=== PATIENT | female | born 1940 | race Caucasian/White ===

== ENCOUNTER 2017-05-31 09:25 | Emergency (ER) | payer MEDICARE, OTHER ==
[~2017-05-31] VITALS: Ht 157.5 cm; Wt 68.2 kg
[2017-05-31 09:26] VITALS: BP 114/65; PULSE 76; RESP 16; O2SAT 95
--- NOTE | 2017-05-31 09:34 | ED.REPORT ---
HPI-Trauma Minor / Fall Date of Service May 31, 2017 ED Provider: Dr. Marrero Pt is a 76 year old female with a hx of glaucoma presenting to the ED after tripping on the sidewalk and falling face first onto the sidewalk. She presents with abrasions to her upper lip, chin, knees and nose, and pain in her right wrist. She tried to catch herself with her hands, but fell onto her face. She denies any LOC, neck pain, back pain, vision changes, jaw pain or misalignment, abd pain, chest pain, trouble walking, or any other symptoms at this time. Nursing Notes Stated Complaint: GLF Chief Complaint: Multiple Trauma/Fall Nursing Notes Reviewed: Yes Allergies: Coded Allergies: amoxicillin (Verified Allergy, Severe, Anaphylaxis, 05/31/17) codeine (Verified Adverse Reaction, Severe, Nausea,Vomiting, 05/31/17) General Time Seen by MD: 09:33 Chief Complaint Fall on outstretched hand Hx Obtained From: Patient Arrived By: Walk-in Onset Occurred: Just prior to arrival Symptom Duration: Since onset Caused by: Fall on ground Location: Head Wrist right Quality: Painful Severity: Current: Moderate Severity: Maximum: Moderate Context: Immunizations All up to date Recent Healthcare: No recent doctor visit, No recent hospitalization Similar Sx Previous: No Past Medical History Past Medical History Glaucoma Denies: Diabetes mellitus Past Surgical History denies Smoking History Unknown if Ever Smoker Ambulatory Status Independent Review of Systems Review of Systems Note: + Abrasions to lip, nose, chin and knees Eyes: Denies: Visual loss bilateral Respiratory: Denies: Shortness of breath Musculoskeletal: Reports: Extremity pain, Joint pain (Right wrist), Denies: Back pain, Neck pain Neurologic: Denies: Change LOC, Weakness Complete sys rev & neg: except as marked. Cardiovascular: Denies: Chest pain GI: Denies: Abdominal pain Physical Exam Initial Vital Signs Vital Signs (First) Date Time Temp Pulse Resp B/P Pulse Ox O2 Delivery O2 Flow Rate FiO2 05/31/17 09:26 36.1 76 16 114/65 95 Room Air Initial VS: Reviewed Head / Eyes: Atraumatic, Normocephalic, PERRL Respiratory: Breath sounds normal, Clear to auscultation, No respiratory distress Cardiovascular: Regular rate & rhythm, Heart sounds normal, Intact distal pulses Abdomen / GI: Soft, Non-tender, No guarding, No rebound, No distention Extremities: Vascular intact, Neuro intact, No swelling, No tenderness Neurologic: Alert, Oriented, Nonfocal Psychiatric: Mood/affect normal, Behavior normal, Normal thought content General/Constitutional: Awake, Alert, No acute distress ENT: Airway patent, Mucous membranes moist, Pharynx NL No septal hematoma Wrist / Hand: Full range of motion, No swelling, No erythema, No snuffbox tenderness, No deformity, Neurologic intact, Vascular intact, No ligamentous injury No pain with axial loading of thumb Skin: Warm, Dry Abrasions left chin, bridge of nose, left knee, left upper lip. Through and through laceration to upper lip, not involved in the vermilion border. Procedures Laceration Management Laceration Management: After carefully inspecting this wound under magnification and good lighting after having instilled 1-2 mL of lidocaine with epinephrine I could see that there were multiple flaps and it was not clear to me how to optimally aligned them so as to gongora the best cosmetic result. I then contacted Dr. Renato Camarena again and requested his assistance with this wound management which he has kindly agreed to do. Time: 11:24 Procedure Performed by: ED physician Consent / Setup / Site Prep: Consent from patient, Time-out performed, Hand hygiene observed, Stand sterile technique Location of Wound: Left upper lip Wound Preparation: Betadine Post-Procedure / Complications: Antibiotic oint applied, Dressing applied, No complications, Condition improved, Tolerated procedure well, Patient stable Re-Eval/Medical Decision Med Decision/Clinical Course After carefully inspecting this wound under magnification and good lighting after having instilled 1-2 mL of lidocaine with epinephrine I could see that there were multiple flaps and it was not clear to me how to optimally aligned them so as to gongora the best cosmetic result. I then contacted Dr. Renato Camarena again and requested his assistance with this wound management which he has kindly agreed to do. Re-Evaluation/Progress #1: Time of Eval: 10:33 Patient Status: Condition improved Re-Evaluation/Progress Note: Pt pain improved. Re-Evaluation/Progress #2: Time of Eval: 11:08 Patient Status: Condition improved Re-Evaluation/Progress Note: Discussed consultation with Dr. Camarena and plan to suture. Re-Evaluation/Progress #3: Time of Eval: 11:25 Patient Status: Condition improved Re-Evaluation/Progress Note: Performed laceration management. Re-Evaluation/Progress #4: Time of Eval: 11:42 Patient Status: Condition improved Re-Evaluation/Progress Note: Discussed plan to send her to Dr. Camarena for sutures. Pt understands and agrees with plan. Consultation #1: Referral / Consult Name: Renato Camarena MD Consulted With: ENT Call Returned at: 10:26 Asphalt Coater: Will see patient Note: Send a picture of the laceration. Consultation #2: Referral / Consult Name: Renato Camarena MD Consulted With: ENT Call Returned at: 10:49 Note: Discussed the images. Advised to suture the wound. Consultation #3: Referral / Consult Name: Renato Camarena MD Consulted With: ENT Call Returned at: 11:37 Asphalt Coater: Will see patient Note: He will perform laceration management. Counseled Regarding: Diagnosis, Lab results, Need for follow-up, When/why to return to ED Discharge & Departure Impression: Primary Impression: Fall from ground level Additional Impressions: Abrasion, nose w/o infection Laceration of lip Abrasion, chin w/o infection Contusion of right wrist Contusion of knee, left Contusion of knee, right Disposition: Home Discharge Condition All VS Reviewed: Yes Condition: Improved Patient Instructions: Contusion in Adults (ED), Fall Prevention for Children ( GEN), Laceration (ED) Additional Instructions: I do not suspect any fractures. I am sorry that you fell today. You have multiple contusions and abrasions which will require gentle cleansing and antibiotic ointment application. I expect that you will feel quite sore for a number of days. Tylenol/ibuprofen should be sufficient to control the symptoms that you have. Regarding the laceration on your upper lip, I was not comfortable repairing this , not confident that I could get you the best cosmetic outcome. Dr. Renato Camarena has kindly agreed to assist with managing this wound. Please go directly to his office and he will see you as soon as he can work you into his schedule today. Referrals: Stanley Bosch MD (PCP) Renato Camarena MD Scribe Attestation Portions of this note were transcribed by Dayan Miller. I, Dr. Marrero personally performed the history, physical exam and medical decision-making; I reviewed and confirmed the accuracy of the information in the transcribed note. Signed by: Elieser Santana, 05/31/2017 at 1157. copies to: Stanley Bosch MD; Renato Camarena MD, Kirk H MD May 31, 2017 09:34 DAYAN MILLER May 31, 2017 09:52
[2017-05-31] MEDS ORDERED: Lidocaine 2% 6mL Topical Jelly TOPICAL ONE (10:05)
[2017-05-31] MEDS ORDERED: Lidocaine-Epi-Tetracaine Solution 3 mL Syringe TOPICAL ONE (10:15)
[2017-05-31 12:11] VITALS: BP 128/55; PULSE 69; RESP 15; O2SAT 98
== END 2017-05-31 12:13 | disposition home or self-care (01) ==
LOC: SED 09:25
DX: S80.01XA Contusion of right knee, initial encounter (principal); S80.02XA Contusion of left knee, initial encounter; S60.211A Contusion of right wrist, initial encounter; S01.511A Laceration without foreign body of lip, initial encounter; S00.31XA Abrasion of nose, initial encounter; S00.81XA Abrasion of other part of head, initial encounter; W01.0XXA Fall on same level from slipping, tripping and stumbling without subsequent striking against object, initial encounter; Y93.01 Activity, walking, marching and hiking; Y92.480 Sidewalk as the place of occurrence of the external cause; Y99.8 Other external cause status; E78.00 Pure hypercholesterolemia, unspecified